=== PATIENT | female | born 1985 | race Caucasian/White ===

== ENCOUNTER 2017-11-10 09:20 | Emergency (ER) | payer MEDICAID ==
[~2017-11-10] VITALS: Ht 170.2 cm; Wt 78.0 kg
[2017-11-10 09:27] VITALS: BP_SYST 133
[2017-11-10] MEDS ORDERED: IBUPROFEN 800 MG TABLET PO ONE (10:00)
[2017-11-10] MEDS ORDERED: KETOROLAC TROMETHAMINE 30 MG VIAL IM ONE (10:15)
[2017-11-10 10:28] VITALS: BP_SYST 125
== END 2017-11-10 10:28 | disposition home or self-care (01) ==
LOC: SED 09:20
DX: K04.7 Periapical abscess without sinus (principal); Z88.6 Allergy status to analgesic agent
CPT/HCPCS: 96372; 99283; J1885